=== PATIENT | female | born 1935 | race Caucasian/White ===

== ENCOUNTER 2019-03-26 05:37 | Emergency (ER) | payer OTHER ==
[~2019-03-26] VITALS: Ht 165.1 cm; Wt 95.3 kg
[~2019-03-26 05:37] MED LIST: ALEVE220 MG PO; ASPIRIN325 PO; COLACE100 MG PO; IBUPROFEN 200200 M1 PO; NORCO 5-325 TA1 EACH PO; OXYCODONE HCL 55 MG PO; XARELTO10 MG PO
[2019-03-26 07:07] VITALS: BP 115/84
== END 2019-03-26 07:09 | disposition home or self-care (01) ==
LOC: M.ERS 05:37
DX: R04.0 Epistaxis (principal); K21.9 Gastro-esophageal reflux disease without esophagitis; Z90.710 Acquired absence of both cervix and uterus

== ENCOUNTER 2021-01-16 11:46 | Inpatient (IN) | payer OTHER ==
[2021-01-16] VITALS (37 sets, daily range): BP systolic 100–137; BP diastolic 56–85
[~2021-01-16] VITALS: Ht 152.4 cm; Wt 86.2 kg
[2021-01-16 12:07] LABS: ABSOLUTE EOSINOPHILS 0.2 thou/uL (0.0-0.7); ABSOLUTE LYMPHOCYTES 3.2 thou/uL (0.8-5.3); ABSOLUTE MONOCYTES 0.7 thou/uL (0.0-1.2); ABSOLUTE NEUTROPHILS 3.7 thou/uL (1.6-8.1); BASOPHILS 0.3 %; HEMATOCRIT 40.9 % (37.0-47.0); HEMOGLOBIN 13.7 gm/dL (12.0-15.0); LYMPHOCYTES 40.4 %; MCH 32.6 pg (26.0-34.0); MCHC 33.5 g/dL (28.0-37.0); MCV 97.4 fL (80.0-100.0); MONOCYTES 8.9 %; MPV 8.2 fl. (7.2-11.1); NUCLEATED RBCS 0 /100WBC; PLATELET COUNT* 255 thou/uL (150-400); POLYS 47.4 %; RDW-CV 12.9 % (10.5-14.5); WBC 7.8 thou/uL (4.0-11.0)
[2021-01-16 12:18] LABS: CALCIUM 9.3 mg/dL (8.5-10.1); POTASSIUM 3.5 mmol/L (3.5-5.1)
[2021-01-16 12:22] LABS: ALBUMIN 3.4 g/dL (3.4-5.0); TOTAL BILIRUBIN 0.6 mg/dL (<0.1-1.0); TOTAL PROTEIN 7.2 g/dL (6.4-8.2)
--- NOTE | 2021-01-16 14:04 | EKG ---
[place] [address] ELECTROCARDIOGRAM REPORT Name: DANTEBETYEEN Room: [place] [address] ADM IN .R.#: [id number] Admission: 01/16/21 Attend Phys: Анна Argueta Discharge: Date of : 33 Date of Service: 01/16/21 1152 Report #: [id number] THIS REPORT FOR: //name// [facility] ED Test Date: 2021-01-16 Test Time: 11:52:59 Pat Name: BETY HOWELL Department: Room: [facility] Gender: F Content Development Manager: JOHN : 1935 Requested By: Aureliano Wu Order Number: [id number] MD: Henri Sandoval Measurements Intervals [place] Rate: 215 P: -64 LA: 77 QRS: 113 QRSD: 133 T: 256 QT: 252 QTc: 477 Interpretive Statements Wide-QRS tachycardia Right bundle branch block Compared to ECG 10/16/2013 10:07:15 Right bundle-branch block now present Sinus rhythm no longer present ST (T wave) deviation no longer present Electronically Signed On 01-16-2021 14:03:53 CDT by Henri Sandoval [email or web address] <ELECTRONICALLY SIGNED> By: Henri Sandoval MD, FACC 01/16/21 1403 1152 1152 Henri Sandoval MD, FAC /EPI
[2021-01-16 16:05] LABS: CHOLESTEROL 156 mg/dL (<200); HDL CHOLESTEROL 59 mg/dL (>40); LDL CHOLESTEROL 80 mg/dL (<100); SERUM ASSESSMENT Clear; TC:HDL 2.6 Ratio (Not establshd); TRIGLYCERIDE 88 mg/dL (<150); VLDL 18 mg/dL (<40)
[2021-01-16 17:12] LABS: MAGNESIUM 2.1 mg/dL (1.8-2.4)
[2021-01-17] VITALS (7 sets, daily range): BP systolic 88–135; BP diastolic 54–81
[2021-01-17 03:57] LABS: CALCIUM 8.8 mg/dL (8.5-10.1); CREATININE 0.7 mg/dL (0.6-1.3)
--- NOTE | 2021-01-17 08:21 | CARD ---
[address] [address] CARDIAC CATH REPORT Name: BETY HOWELL Room: [address] ADM IN M.R.#: [id number] Admission: 01/16/21 Attend Phys: Carol Sanchez Discharge: Date of : 33 Report #: [id number] THIS REPORT FOR: cc: [facility] - Clinic physician unknown [facility] - Clinic physician unknown Yosvany Art MD [facility] ~ APPROVED REPORT Study performed: 01/16/2021 15:17:30 Patient Details Patient Status: In-Patient Room #: ICU5 The patient is a 85 year-old female Event Personnel Gerardo Etienne RN Concrete Plant Laborer, Yosvany Art [facility] Manager, Eugenie LoboIS Monitor, Flor Matias RTR Scrub, Jayashree Marino RN Monitor Procedures Performed Art Access - R radial artery Coronary Angiography Only Hemostasis with Hemoband Indication Non-STEMI , Arrhythmia, Dizziness and vertigo, Chest pain Admission/Lab Medications/Medications given during procedure Heparin Unfract. Procedure Narrative The patient was brought urgently to the Cardiac Catheterization Laboratory and was prepped and draped in a sterile manner. The right wrist was infiltrated with 1% Lidocaine subcutaneous anesthesia. A Slender Glidesheath sheath was inserted into the right radial artery. Coronary angiography was performed using coronary diagnostic catheters. The right coronary system was accessed and visualized with a Diagnostic JR4 catheter. The left coronary system was accessed and visualized with a Diagnostic JL4 catheter. Closure device was deployed with a 6 Fr vascband. The patient tolerated the procedure well and there were no complications associated with the procedure. There was no hematoma. Radial artery access was challenging due to tortuosity. Patient had spasm and could not get the pigtail catheter to advance into ventricle [place] [address] CARDIAC CATH REPORT Name: DANTEBETY Room: [address] IN ..#: [id number] Admission: 01/16/21 Attend Phys: Carol Sanchez Discharge: Date of : 33 Report #: [id number] Intraoperative Conscious Sedation No Sedation was given to patient Case started at 16:52 and Case End was at 17:24 Fluoro Time: 7.0 minutes Dose: DAP 99594 cGycm2 797 mGy Contrast Type and Amount: Visipaque 80 mL Coronary Angiography The patient's coronary anatomy is right dominant. Diagnostic Cath Left Main 30% distal stenosis LAD ostial 50% stenosis Diagonal 1 medium sized vessel with ostial 90% and mid 80% stenosis Circumflex 50% proximal and 50% mid stenosis Right Coronary 40% proximal stenosis Left Ventriculography Left Ventriculography was not performed. Hemodynamics The aortic pressure is 138/75 mmHg with a mean of 101 mmHg. Conclusion 1. 30% left main stenosis, and 50% proximal LAD stenosis. 2. 90% ostial stenosis of the first diagonal artery. Recommendations 1. consider femoral approach on future cardiac catheterizations because of tortuous brachial and right innominate artery making radial approach difficult. 2. consider stenting of the ostium of the diagonal branch if the patient has refactory angina despite medical therapy. <ELECTRONICALLY SIGNED> By: Yosvany Art MD, [facility] 01/17/21820 0 0Dakevin Art MD, [facility] /INF
--- NOTE | 2021-01-17 13:00 | 2DMMODE ---
[place] [address] 2 D/M-MODE ECHOCARDIOGRAM Name: BETY HOWELLHLEEN Room: [address] ADM IN .Crystal.#: [id number] Admission: 01/16/21 Attend Phys: Анна Argueta Discharge: Date of : 33 Date of Service: 01/17/21 1300 Report #: [id number] THIS REPORT FOR: cc: [facility] - Clinic physician unknown [facility] - Clinic physician unknown Henri Sandoval MD [facility] ~ APPROVED REPORT Study performed: 01/17/2021 10:57:18 EXAM: Comprehensive 2D, Doppler, and color-flow Echocardiogram Patient Location: In-Patient Room #: [facility] Status: routine BSA: 1.93 HR: 79 bpm BP: 111/59 mmHg Rhythm: NSR Other Information Study Quality: Good Indications Acute AR 2D Dimensions IVSd: 13.30 (7-11mm) LVOT Diam: 21.79 (18-24mm) LVDd: 51.32 mm PWd: 12.67 (7-11mm) Ascending Ao: 39.10 (22-36mm) LVDs: 31.55 (25-40mm) Aortic Root: 36.83 mm Volumes Left Atrial Volume (Systole) LA ESV Index: 42.90 mL/m2 Aortic Valve AoV Peak Jason.: 1.73 m/s AO Peak Gr.: 11.94 mmHg LVOT Max P.22 mmHg AO Mean Gr.: 6.28 mmHg LVOT Mean P.11 mmHg LVOT Max V: 0.75 m/s AO V2 VTI: 30.14 cm LVOT Mean V: 0.49 m/s JEREMY (VTI): 1.88 cm2 LVOT V1 VTI: 15.23 cm AI [place]: 2.50 m/s2 [place] [address] 2 D/M-MODE ECHOCARDIOGRAM Name: BETY HOWELL Room: [address] ADM IN .R.#: [id number] Admission: 01/16/21 Attend Phys: Анна Argueta Discharge: Date of : 33 Date of Service: 01/17/21 1300 Report #: [id number] AI PHT: 479.25 ms Mitral Valve E/A Ratio: 1.38 MV Decel. Time: 163.68 ms MV E Max Jason.: 1.08 m/s MV PHT: 47.47 ms MVA (PHT): 4.63 cm2 TDI E/Lateral E': 12.00 E/Medial E': 18.00 Medial E' Jason.: 0.06 m/s Lateral E' Jason.: 0.09 m/s Pulmonary Valve PV Peak Jason.: 0.75 m/s PV Peak Gr.: 2.28 mmHg Tricuspid Valve RAP Estimate: 10.00 mmHg TR Peak Gr.: 24.22 mmHg RVSP: 34.00 mmHg PA Pressure: 34.00 mmHg Left Ventricle The left ventricle is normal size. There is normal LV segmental wall motion. Mild concentric left ventricular hypertrophy. Left ventricular systolic function is normal. LVEF is 60-65%. Transmitral Doppler flow pattern suggests restrictive physiology. Right Ventricle The right ventricle is normal size. The right ventricular systolic function is normal. Atria Left atrium is mild to moderately dilated. The right atrium size is normal. Aortic Valve Mild aortic valve sclerosis. Moderate aortic regurgitation. Mild aortic stenosis. Mitral Valve The mitral valve is normal in structure. Moderate mitral regurgitation. No evidence of mitral valve stenosis. Tricuspid Valve The tricuspid valve is normal in structure[place] [address] 2 D/M-MODE ECHOCARDIOGRAM Name: BETY HOWELL Room: [address] IN [facility]#: [id number] Admission: 01/16/21 Attend Phys: Анна Argueta Discharge: Date of : 33 Date of Service: 01/17/21 1300 Report #: [id number] regurgitation. Mild pulmonary hypertension. The RVSP is 35-40 mmHg. Pulmonic Valve The pulmonary valve is normal in structure. Mild pulmonic regurgitation. Great Vessels The aortic root is normal in size. The ascending aorta is mildly dilated. (3.9 cm). IVC is normal in size and collapses >50% with inspiration. Pericardium There is no pericardial effusion. <Conclusion> The left ventricle is normal size. Mild concentric left ventricular hypertrophy. Left ventricular systolic function is normal. LVEF is 60-65%. Transmitral Doppler flow pattern suggests restrictive physiology. There is normal LV segmental wall motion. Moderate aortic regurgitation. Mild aortic stenosis. Moderate mitral regurgitation. Mild tricuspid regurgitation. Mild pulmonary hypertension. The RVSP is 35-40 mmHg. The ascending aorta is mildly dilated. (3.9 cm). <ELECTRONICALLY SIGNED> By: Henri Sandoval MD, FACC 01/17/21 1300 1300 99 Henri Sandoval MD, FACC /INF
--- NOTE | 2021-01-17 17:29 | EKG ---
[place] [address] ELECTROCARDIOGRAM REPORT Name: KINGBETY CARTEREEN Room: [address] ADM IN M.R.#: [id number] Admission: 01/16/21 Attend Phys: Анна Argueta Discharge: Date of : 33 Date of Service: 01/17/21 1225 Report #: [id number] THIS REPORT FOR: //name// [facility] Test Date: 2021-01-17 Test Time: 12:25:58 Pat Name: BETY HOWELL Department: Room: [address] Gender: F System Support Analyst: SAY : 1935 Requested By: Yosvany Art Order Number: [id number] Pamela MD: Henri Sandoval Measurements Intervals [place] Rate: 77 P: 16 CO: 175 QRS: 4 QRSD: 96 T: -9 QT: 390 QTc: 442 Interpretive Statements Sinus rhythm Inferior infarct, 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
[2021-01-18 00:01] VITALS: BP 124/68
[2021-01-18 04:00] VITALS: BP 138/74
[2021-01-18 07:01] VITALS: BP 126/70
[2021-01-18 08:01] VITALS: BP 140/86
--- NOTE | 2021-01-18 10:17 | EKG ---
[place] [address] ELECTROCARDIOGRAM REPORT Name: BINU HOWELLLISONIA COOMBSALEX Room: [address] ADM IN M.R.#: [id number] Admission: 01/16/21 Attend Phys: Анна Argueta Discharge: Date of : 33 Date of Service: 01/18/21 0749 Report #: [id number] THIS REPORT FOR: //name// [facility] Test Date: 2021-01-18 Test Time: 07:49:59 Pat Name: BETY HOWELL Department: Room: [address] Gender: F Welder Machine Operator: DIAN : 1935 Requested By: Gina Turcios Order Number: [id number] Reading MD: Yosvany Art Measurements Intervals [place] Rate: 70 P: 1 OR: 180 QRS: 0 QRSD: 96 T: -9 QT: 418 QTc: 452 Interpretive Statements Sinus rhythm Probable anteroseptal infarct, old Borderline repol abnrm, inferolateral leads Minimal ST elevation, inferior leads Compared to ECG 01/17/2021 12:25:58 Myocardial infarct finding still present Electronically Signed On 01-18-2021 10:17:01 CDT by Yosvany Art [email or web address] <ELECTRONICALLY SIGNED> By: Yosvany Art MD, [facility] 01/18/21 1017 0749 0749 Yosvany Art MD, [facility] /EPI
[2021-01-18] MEDS ORDERED: PACERONE 200 M200 M1 PO (11:14)
[2021-01-18] MEDS ORDERED: LIPITOR 40 MG T40 M1 PO (11:14)
[2021-01-18] MEDS ORDERED: TRAMADOL 50 MG50 MG PO (11:14)
[2021-01-18] MEDS ORDERED: PLAVIX 75 MG TA75 MG PO (11:14)
[2021-01-18] MEDS ORDERED: BAYER CHEWABLE81 MG PO (11:14)
[2021-01-18 11:17] VITALS: BP 140/86
[2021-01-18 12:00] VITALS: BP 134/81
== END 2021-01-18 12:46 | disposition home or self-care (01) | DRG 281 ==
LOC: M.ERS 11:46 → M.TBA-ER 13:09 → M.ICU 13:09
PROVIDERS: Emergency Medicine; Internal Medicine Cardiovascular Disease; Registered Nurse; ADMIT Internal Medicine; ATTEND Internal Medicine
PROC: 5A2204Z Restoration of Cardiac Rhythm, Single (ICD-10-PCS; principal; 2021-01-16)
PROC: 4A023N7 Measurement of Cardiac Sampling and Pressure, Left Heart, Percutaneous Approach (ICD-10-PCS; principal; 2021-01-16)
PROC: B211YZZ Fluoroscopy of Multiple Coronary Arteries using Other Contrast (ICD-10-PCS; principal; 2021-01-16)
DX: I21.3 ST elevation (STEMI) myocardial infarction of unspecified site (principal); I47.1 Supraventricular tachycardia; Z20.822 Contact with and (suspected) exposure to COVID-19; K21.9 Gastro-esophageal reflux disease without esophagitis; I10 Essential (primary) hypertension; R54 Age-related physical debility; Z90.710 Acquired absence of both cervix and uterus; Z98.42 Cataract extraction status, left eye; Z98.41 Cataract extraction status, right eye